=== PATIENT | female | born 2000 | race Hispanic/Latino ===

== ENCOUNTER 2022-05-05 07:56 | Outpatient (CLI) | payer OTHER ==
[2022-05-05] MEDS ORDERED: Iopamidol 370 76% 100 ML VIAL ONE (09:14)
== END 2022-05-05 07:57 | disposition home or self-care (01) ==
LOC: BICCT 07:56
PROVIDERS: ATTEND Nurse Practitioner Family
DX: R06.02 Shortness of breath (principal); R91.1 Solitary pulmonary nodule
CPT/HCPCS: 71275